=== PATIENT | male | born 1950 | race Caucasian/White ===

== ENCOUNTER 2019-06-10 21:55 | Emergency (ER) | payer MEDICARE, MEDICAID ==
--- NOTE | 2019-06-10 22:01 | EDM.PDOC ---
ED HPI GENERAL MEDICAL PROBLEM - General Chief Complaint: General Stated Complaint: syncopy Time Seen by Provider: 06/10/19 22:00 Source of Information: Reports: Patient, Police - History of Present Illness INITIAL COMMENTS - FREE TEXT/NARRATIVE: Aubrey was found seated outside the doorway, of the local service station. He had driven there to apple picking supervisor chicken and potatoes for him and his further evening meal. He stated no injury, with slightly slow to wake up/respond when law enforcement and ambulance were summoned. His food was in containers, nondisturbed on the concrete next to him. He showed no evidence of injury. He had no evidence or older of alcoholic beverage/intoxication. He was initially assessed and recommended he should seek evaluation at which she denied ambulance but agreed to be transported via law enforcement to the emergency department. Denies any intake of alcohol or drugs but states he took his sleeping medication half hours so prior to going up for the food and feels that caused him to become extremely sleepy at which time he settled himself down. Report came the gentleman was passed out at the gas station. He is completely appropriate denying any distress as he is ambulatory into the department accompanied by law enforcement. Onset: Today Duration: Minutes: Severity: Moderate Improves with: Reports: Other (Time) Worsens with: Reports: None Associated Symptoms: Reports: No Other Symptoms - Related Data Allergies Allergy/AdvReac Type Severity Reaction Status Date / Time No Known Drug Allergies Allergy Other Verified 06/10/19 22:12 Home Meds: Home Meds Acetaminophen 500 mg PO DAILY PRN 01/21/18 [History] Metoprolol Tartrate 12.5 mg PO DAILY 06/10/19 [History] amLODIPine Besylate [Amlodipine Besylate] 5 mg PO DAILY 06/10/19 [History] lisinopriL [Lisinopril] 40 mg PO DAILY 06/10/19 [History] traZODone HCl [Trazodone HCl] 50 mg PO 2100 06/10/19 [History] Past Medical History HEENT History: Reports: Cataract, Impaired Vision Cardiovascular History: Reports: None Respiratory History: Reports: None Gastrointestinal History: Reports: None Genitourinary History: Reports: None Musculoskeletal History: Reports: None Neurological History: Reports: None Psychiatric History: Reports: None Endocrine/Metabolic History: Reports: None Hematologic History: Reports: None Immunologic History: Reports: None Oncologic (Cancer) History: Reports: Basal Cell Carcinoma Dermatologic History: Reports: None - Infectious Disease History Infectious Disease History: Reports: Chicken Pox, Measles, Mumps - Past Surgical History Head Surgeries/Procedures: Reports: None HEENT Surgical History: Reports: Cataract Surgery Cardiovascular Surgical History: Reports: None GI Surgical History: Reports: None Male Surgical History: Reports: None Endocrine Surgical History: Reports: None Neurological Surgical History: Reports: C-Spine Musculoskeletal Surgical History: Reports: None Other Musculoskeletal Surgeries/Procedures:: C-spine fusion Oncologic Surgical History: Reports: None Dermatological Surgical History: Reports: None Social & Family History - Family History Family Medical History: Noncontributory - Caffeine Use Caffeine Use: Reports: Coffee, Soda ED ROS GENERAL - Review of Systems Review Of Systems: Comprehensive ROS is negative, except as noted in HPI. ED EXAM, GENERAL - Physical Exam Exam: See Below General Appearance: Alert, WD/WN, No Apparent Distress Ears: Normal External Exam, Normal Canal, Hearing Grossly Normal, Normal TMs Nose: Normal Inspection, Normal Mucosa, No Blood Throat/Mouth: Normal Inspection, Normal Lips, Normal Teeth, Normal Gums, Normal Oropharynx, Normal Voice, No Airway Compromise Head: Atraumatic, Normocephalic Neck: Normal Inspection, Supple, Non-Tender, Full Range of Motion Respiratory/Chest: No Respiratory Distress, Lungs Clear, Normal Breath Sounds, No Accessory Muscle Use, Chest Non-Tender Cardiovascular: Normal Peripheral Pulses, Regular Rate, Rhythm, No Edema, No Gallop, No JVD, No Murmur, No Rub GI/Abdominal: Normal Bowel Sounds, Soft, Non-Tender, No Organomegaly, No Distention, No Abnormal Bruit, No Mass (Male) Exam: Deferred Rectal (Males) Exam: Deferred Back Exam: Full Range of Motion Extremities: Normal Inspection, Normal Range of Motion, Non-Tender, No Pedal Edema Neurological: Alert, Oriented, CN II-XII Intact, Normal Cognition, Normal Gait, Normal Reflexes, No Motor/Sensory Deficits Psychiatric: Normal Affect, Normal Mood Skin Exam: Warm, Dry, Intact, Normal Color, No Rash Lymphatic: No Adenopathy Course - Vital Signs Last Recorded V/S: Last Vital Signs Temp 36.6 C 06/10/19 21:55 Pulse 73 06/10/19 21:55 Resp 20 06/10/19 21:55 BP 153/86 H 06/10/19 21:55 Pulse Ox 99 06/10/19 21:55 - Re-Assessments/Exams Free Text/Narrative Re-Assessment/Exam: 06/10/19 23:13 As he declined any intervention and was totally appropriate questioning we did not pursue any extensive workup. On record review of what was diagnosed as an encephalopathy last fall with no significant findings in that workup. Hospitalized at [facility] for 6 days. He remains totally appropriate and is under no medical compliancy for evaluation as he is totally appropriate. On enforcement is requesting legal issues, as he had driven to the gas station, of which is 0 is registered on breathalyzer. They also request and obtain urine toxicology and a release of records. Departure - Departure Time of Disposition: 22:33 Disposition: Home, Self-Care 01 Condition: Good Clinical Impression: Syncope Qualifiers: Syncope type: unspecified Qualified Code(s): R55 - Syncope and collapse - Discharge Information *PRESCRIPTION DRUG MONITORING PROGRAM REVIEWED*: Not Applicable *COPY OF PRESCRIPTION DRUG MONITORING REPORT IN PATIENT ARISTIDES: Not Applicable Referrals: Micah Parrish MD [Primary Care Provider] - Forms: ED Department Discharge Additional Instructions: You need to go home and rest. You need to take all of your prescribed medications as directed. You need to follow up with your clinic provider as needed. The clinic visit in the next week would be greatly beneficial to your overall health status. As you are under no obligation for further treatment we will not conduct more testing other than the physical evaluation I performed which was negative for any adverse findings. Please consider seeing your clinic next week for a complete follow-up and workup regarding your status. Call or return if any questions. Sepsis Event Note - Focused Exam Vital Signs: Vital Signs Temp Pulse Resp BP Pulse Ox 06/10/19 21:55 36.6 C 73 20 153/86 H 99 Date Exam was Performed: 06/10/19 Time Exam was Performed: 23:09 - Problem List & Annotations (1) Syncope SNOMED Code(s): 034055026 Code(s): R55 - SYNCOPE AND COLLAPSE Status: Acute Priority: Medium Qualifiers: Syncope type: unspecified Qualified Code(s): R55 - Syncope and collapse - Problem List Review Problem List Initiated/Reviewed/Updated: Yes - Assessment/Plan Plan: You need to go home and rest. You need to take all of your prescribed medications as directed. You need to follow up with your clinic provider as needed. The clinic visit in the next week would be greatly beneficial to your overall health status. As you are under no obligation for further treatment we will not conduct more testing other than the physical evaluation I performed which was negative for any adverse findings. Please consider seeing your clinic next week for a complete follow-up and workup regarding your status. Call or return if any questions.
== END 2019-06-10 22:50 | disposition home or self-care (01) ==
LOC: KA.ED 21:55
DX: R55 Syncope and collapse (principal); Z79.899 Other long term (current) drug therapy
CPT/HCPCS: 99284

== ENCOUNTER 2021-08-30 16:30 | Emergency (ER) | payer MEDICARE, MEDICAID ==
[2021-08-30] MEDS ORDERED: Lidocaine 1% 20 ML MDV ONE (17:06)
[2021-08-30] MEDS ORDERED: Cephalexin 250 MG Cap ONE (17:13)
[2021-08-30] MEDS: Cephalexin 250 MG Cap PO ONE (17:30)
== END 2021-08-30 17:35 | disposition home or self-care (01) ==
LOC: KA.ED 16:30
DX: S61.012A Laceration without foreign body of left thumb without damage to nail, initial encounter (principal); I10 Essential (primary) hypertension; F17.210 Nicotine dependence, cigarettes, uncomplicated; Z79.899 Other long term (current) drug therapy; Z79.4 Long term (current) use of insulin; Z79.84 Long term (current) use of oral hypoglycemic drugs; W31.2XXA Contact with powered woodworking and forming machines, initial encounter
CPT/HCPCS: 73140-FA; 99283; A9270-GY

== ENCOUNTER 2023-04-25 14:50 | Emergency (ER) | payer MEDICAID, MEDICARE, OTHER ==
[2023-04-25 16:02] LABS: BASOPHILS ABSOLUTE AUTO 0.04 10^3/uL (0.00-0.10); BASOPHILS PERCENT AUTO 0.6 % (0.0-1.0); EOSINOPHILS ABSOLUTE AUTO 0.06 10^3/uL (0.10-0.30); EOSINOPHILS PERCENT AUTO 0.9 % (1.0-3.0); HEMATOCRIT 38.2 % (40.0-52.0); HEMOGLOBIN 13.6 g/dL (13.0-17.0); IMMATURE GRAN ABSOLUTE AUTO 0.03 10^3/uL (0.00-0.50); IMMATURE GRAN PERCENT AUTO 0.4 % (0.0-5.0); LYMPHOCYTES ABSOLUTE AUTO 2.09 10^3/uL (1.00-4.00); LYMPHOCYTES PERCENT AUTO 29.9 % (20.0-40.0); MEAN CORPUSCULAR HEMOGLOBIN 30.2 pg (27.0-31.0); MEAN CORPUSCULAR HGB CONC 35.6 g/dL (32.0-36.0); MEAN CORPUSCULAR VOLUME 84.7 fL (82.0-92.0); MEAN PLATELET VOLUME 11.6 fL (7.4-10.4); MONOCYTES ABSOLUTE AUTO 0.42 10^3/uL (0.10-0.80); NEUTROPHILS ABSOLUTE AUTO 4.36 10^3/uL (2.50-7.00); NEUTROPHILS PERCENT AUTO 62.2 % (50.0-70.0); PLATELET COUNT,PLT 225 10^3/uL (150-400); RED BLOOD CELL COUNT 4.51 10^6/uL (4.50-6.00); RED CELL DISTRIBUTION WIDTH 12.2 % (11.5-14.5)
[2023-04-25 16:24] LABS: ALBUMIN 3.74 g/dL (3.40-5.00); BILIRUBIN TOTAL 0.6 mg/dL (0.2-1.0); CALCIUM 8.9 mg/dL (8.7-10.3); CARBON DIOXIDE,CO2 17.9 mmol/L (21.0-32.0); CREATININE 0.86 mg/dL (0.51-1.17); EST CRCL DRUG DOSING (CG) 62.85 mL/min; POTASSIUM,K 4.9 mmol/L (3.5-5.1); PROTEIN TOTAL,TP 6.8 g/dL (6.4-8.2)
[2023-04-25] MEDS: Sodium Chloride 0.9% 1,000 ML IV ONE ×2 (16:32→18:57)
[2023-04-25] MEDS: Insulin Regular, Human 100 Units/ML 10 ML Vial SUBCUT ONE (17:17)
[2023-04-25] MEDS: Insulin Regular in 0.9 % NACL 100 ML IV SCH (17:55)
[2023-04-25 19:16] LABS: ANION GAP 21.3 mmol/L (5-15); CALCIUM 8.9 mg/dL (8.7-10.3); CARBON DIOXIDE,CO2 20.8 mmol/L (21.0-32.0); CREATININE 0.86 mg/dL (0.51-1.17); EST CRCL DRUG DOSING (CG) 62.85 mL/min; POTASSIUM,K 4.1 mmol/L (3.5-5.1)
[2023-04-25] MEDS: Potassium Chloride 20 MEQ Tab.ER PO ONE (20:06)
[2023-04-25] MEDS: Sodium Chloride 0.9% 1,000 ML IV SCH (20:36)
[2023-04-25] MEDS ORDERED: Dextrose 5%-0.9% NaCl 1,000 ML IV SCH (22:30)
[2023-04-25 22:40] LABS: ANION GAP 15.3 mmol/L (5-15); CALCIUM 8.6 mg/dL (8.7-10.3); CARBON DIOXIDE,CO2 24.4 mmol/L (21.0-32.0); CREATININE 0.8 mg/dL (0.51-1.17); EST CRCL DRUG DOSING (CG) 67.57 mL/min; POTASSIUM,K 3.7 mmol/L (3.5-5.1)
== END 2023-04-25 22:34 ==
LOC: SUPCPDRO 14:50 → KA.ED 14:50
DX: R42 Dizziness and giddiness (principal); E11.10 Type 2 diabetes mellitus with ketoacidosis without coma; Z79.4 Long term (current) use of insulin; I10 Essential (primary) hypertension; Z79.84 Long term (current) use of oral hypoglycemic drugs; Z79.899 Other long term (current) drug therapy
CPT/HCPCS: 36415; 80048; 80053; 82947; 83605; 85025; 93005; 93010; 96360; 96361; 99284; 99285-25; A9270-GY; J1815-GY; J7030; Q3014

== ENCOUNTER 2024-02-02 09:15 | Emergency (ER) | payer MEDICAID, MEDICARE, OTHER ==
[2024-02-02] MEDS ORDERED: Sodium Chloride 0.9% 10 ML Syringe FLUSH PRN (09:21)
[2024-02-02 09:34] LABS: BASOPHILS ABSOLUTE AUTO 0.03 10^3/uL (0.00-0.10); BASOPHILS PERCENT AUTO 0.4 % (0.0-1.0); EOSINOPHILS ABSOLUTE AUTO 0.13 10^3/uL (0.10-0.30); EOSINOPHILS PERCENT AUTO 1.6 % (1.0-3.0); HEMATOCRIT 42.6 % (40.0-52.0); HEMOGLOBIN 14.4 g/dL (13.0-17.0); IMMATURE GRAN ABSOLUTE AUTO 0.02 10^3/uL (0.00-0.50); IMMATURE GRAN PERCENT AUTO 0.3 % (0.0-5.0); LYMPHOCYTES PERCENT AUTO 40.4 % (20.0-40.0); MEAN CORPUSCULAR HEMOGLOBIN 28.6 pg (27.0-31.0); MEAN CORPUSCULAR HGB CONC 33.8 g/dL (32.0-36.0); MEAN CORPUSCULAR VOLUME 84.7 fL (82.0-92.0); MONOCYTES ABSOLUTE AUTO 0.46 10^3/uL (0.10-0.80); MONOCYTES PERCENT AUTO 5.8 % (2.0-8.0); NEUTROPHILS ABSOLUTE AUTO 4.08 10^3/uL (2.50-7.00); NEUTROPHILS PERCENT AUTO 51.5 % (50.0-70.0); PLATELET COUNT,PLT 261 10^3/uL (150-400); RED BLOOD CELL COUNT 5.03 10^6/uL (4.50-6.00); RED CELL DISTRIBUTION WIDTH 12.7 % (11.5-14.5); WHITE BLOOD CELL COUNT,WBC 7.92 10^3/uL (5.00-10.00)
[2024-02-02 09:43] LABS: HEMOGLOBIN A1C > 14.0 % (4.3-5.7)
[2024-02-02 09:50] LABS: PH VENOUS,POC 7.29 pH (7.32-7.43)
[2024-02-02] MEDS: Sodium Chloride 0.9% 1,000 ML IV ONE (09:55)
[2024-02-02 09:59] LABS: ANION GAP 12.4 mmol/L (5-15); BLOOD UREA NITROGEN,BUN 25 mg/dL (7-18); CALCIUM 8.2 mg/dL (8.7-10.3); CARBON DIOXIDE,CO2 28.1 mmol/L (21.0-32.0); CHLORIDE,CL 91 mmol/L (98-107); CREATININE 1.38 mg/dL (0.51-1.17); EST CRCL DRUG DOSING (CG) 40.65 mL/min; GLUCOSE RANDOM 495 mg/dL (70-140); POTASSIUM,K 3.5 mmol/L (3.5-5.1); SODIUM,NA 128 mmol/L (136-145)
[2024-02-02 10:10] LABS: ESTIMATED GFR 53 mL/min (>=60)
== END 2024-02-02 11:03 | disposition home or self-care (01) ==
LOC: KA.ED 09:15
DX: E10.65 Type 1 diabetes mellitus with hyperglycemia (principal); Z79.4 Long term (current) use of insulin; I10 Essential (primary) hypertension; Z88.8 Allergy status to other drugs, medicaments and biological substances; Z79.899 Other long term (current) drug therapy
CPT/HCPCS: 36415; 80048; 82803; 82947; 83036; 85025; 96360; 99284; J7030

== ENCOUNTER 2024-09-08 12:16 | Emergency (ER) | payer MEDICARE, MEDICAID ==
[2024-09-08] MEDS: Amoxicillin/Clavulanate K 875-125 MG Tab PO ONE (16:57)
[2024-09-08 17:02] VITALS: BP 120/79; PULSE 76
== END 2024-09-08 17:30 ==
LOC: KA.ED 12:16
DX: L03.032 Cellulitis of left toe (principal); M86.8X7 Other osteomyelitis, ankle and foot; I10 Essential (primary) hypertension; Z88.5 Allergy status to narcotic agent; Z79.899 Other long term (current) drug therapy; Z79.4 Long term (current) use of insulin; Z79.84 Long term (current) use of oral hypoglycemic drugs
CPT/HCPCS: 71045; 73660-TA; 99283; 99285; A9270-GY

== ENCOUNTER 2025-01-02 07:18 | Inpatient (IN) | payer MEDICARE, MEDICAID ==
[2025-01-02 07:54] LABS: BASOPHILS ABSOLUTE AUTO 0.02 10^3/uL (0.00-0.10); BASOPHILS PERCENT AUTO 0.1 % (0.0-1.0); EOSINOPHILS ABSOLUTE AUTO 0.01 10^3/uL (0.10-0.30); EOSINOPHILS PERCENT AUTO 0.1 % (1.0-3.0); IMMATURE GRAN ABSOLUTE AUTO 0.06 10^3/uL (0.00-0.04); IMMATURE GRAN PERCENT AUTO 0.4 % (0.0-0.4); LYMPHOCYTES ABSOLUTE AUTO 0.64 10^3/uL (1.00-4.00); LYMPHOCYTES PERCENT AUTO 4.2 % (20.0-40.0); MEAN PLATELET VOLUME 11.1 fL (7.4-10.4); MONOCYTES ABSOLUTE AUTO 0.92 10^3/uL (0.10-0.80); MONOCYTES PERCENT AUTO 6.1 % (2.0-8.0); NEUTROPHILS ABSOLUTE AUTO 13.45 10^3/uL (2.50-7.00); NEUTROPHILS PERCENT AUTO 89.1 % (50.0-70.0); PLATELET COUNT,PLT 135 10^3/uL (150-400); RED BLOOD CELL COUNT 4.93 10^6/uL (4.50-6.00); RED CELL DISTRIBUTION WIDTH 12.1 % (11.5-14.5); WHITE BLOOD CELL COUNT,WBC 15.10 10^3/uL (5.00-10.00)
[2025-01-02 08:07] LABS: ALANINE AMINOTRANSFERASE,ALT 30.0 U/L (14-63); ASPARTATE AMNIOTRANSFERASE,AST 14.0 U/L (15-37); BILIRUBIN TOTAL 0.7 mg/dL (0.2-1.0); BLOOD UREA NITROGEN,BUN 18.0 mg/dL (7-18); CARBON DIOXIDE,CO2 10.6 mmol/L (21.0-32.0); CHLORIDE,CL 90.0 mmol/L (98-107); CREATININE 1.08 mg/dL (0.51-1.17); EST CRCL DRUG DOSING (CG) 48.53 mL/min; GLUCOSE RANDOM 470.0 mg/dL (70-140); POTASSIUM,K 4.7 mmol/L (3.5-5.1); PROTEIN TOTAL,TP 6.9 g/dL (6.4-8.2); SODIUM,NA 130.0 mmol/L (136-145)
[2025-01-02 08:11] LABS: ESTIMATED GFR 71.0 mL/min (>=60)
[2025-01-02] MEDS ORDERED: Glucose Gel 15 GM in 37.5 GM Tube PO PRN (08:25)
[2025-01-02] MEDS ORDERED: 50% Dextrose in Water 50 ML Syringe IVPUSH PRN (08:25)
[2025-01-02] MEDS: Insulin Regular, Human 100 Units/ML 10 ML Vial SUBCUT ONE (08:45)
[2025-01-02 09:50] LABS: PH ARTERIAL,POC 7.26 pH (7.35-7.45)
[2025-01-02 09:51] LABS: BASE EXCESS ARTERIAL,POC -19 mmol/L ((-2)-3); HCO3 ARTERIAL,POC 5.0 mmol/L (21-28); O2 SATURATION ARTERIAL,POC 98.1 % (94-98); PCO2 ARTERIAL,POC 11 mmHg (35-48); PO2 ARTERIAL,POC 117 mmHg (83-108); TCO2 ARTERIAL,POC < 5 mmol/L (22-29)
[2025-01-02 11:28] LABS: APPEARANCE,URINE CLEAR (CLEAR); GLUCOSE,URINE 500 mg/dL (NEGATIVE); OCCULT BLOOD,URINE SMALL (NEGATIVE)
[2025-01-02 11:32] LABS: EPITHELIAL CELLS,URINE RARE /LPF
[2025-01-02 11:56] LABS: INFLUENZA A NAA NEGATIVE (NEGATIVE); INFLUENZA B NAA NEGATIVE (NEGATIVE); RESPIRATORY SYNCYTIAL VIR NAA NEGATIVE (NEGATIVE)
[2025-01-02 11:58] LABS: CORONAVIRUS COVID-19 NAA NEGATIVE (NEGATIVE)
[2025-01-02] MEDS ORDERED: Ondansetron 4 MG Tab.DIS PO PRN (12:10)
[2025-01-02] MEDS ORDERED: Acetaminophen/HYDROcodone 325-5 MG Tab PO PRN (12:10)
[2025-01-02] MEDS: Iopamidol 755 Mg/ML 100 ML Bottle IV ONE (12:12)
[2025-01-02 12:59] LABS: BLOOD UREA NITROGEN,BUN 25.0 mg/dL (7-18); CARBON DIOXIDE,CO2 13.1 mmol/L (21.0-32.0); CHLORIDE,CL 97.0 mmol/L (98-107); CREATININE 0.88 mg/dL (0.51-1.17); EST CRCL DRUG DOSING (CG) 53.64 mL/min; GLUCOSE RANDOM 386.0 mg/dL (70-140); POTASSIUM,K 4.1 mmol/L (3.5-5.1); SODIUM,NA 131.0 mmol/L (136-145)
[2025-01-02 13:01] LABS: ESTIMATED GFR 89.0 mL/min (>=60)
[2025-01-02 17:13] LABS: BLOOD UREA NITROGEN,BUN 22.0 mg/dL (7-18); CARBON DIOXIDE,CO2 17.1 mmol/L (21.0-32.0); CHLORIDE,CL 101.0 mmol/L (98-107); CREATININE 0.78 mg/dL (0.51-1.17); EST CRCL DRUG DOSING (CG) 60.51 mL/min; ESTIMATED GFR 92.0 mL/min (>=60); GLUCOSE RANDOM 253.0 mg/dL (70-140); POTASSIUM,K 4.6 mmol/L (3.5-5.1); SODIUM,NA 131.0 mmol/L (136-145)
[2025-01-03] MEDS: Insulin Regular, Human 100 Units/ML 10 ML Vial SUBCUT SCH (06:24)
[2025-01-03 08:46] LABS: BLOOD UREA NITROGEN,BUN 17.0 mg/dL (7-18); CARBON DIOXIDE,CO2 15.0 mmol/L (21.0-32.0); CHLORIDE,CL 100.0 mmol/L (98-107); CREATININE 0.85 mg/dL (0.51-1.17); EST CRCL DRUG DOSING (CG) 55.53 mL/min; GLUCOSE RANDOM 370.0 mg/dL (70-140); POTASSIUM,K 3.9 mmol/L (3.5-5.1); SODIUM,NA 132.0 mmol/L (136-145)
[2025-01-03 08:49] LABS: ESTIMATED GFR 90.0 mL/min (>=60)
[2025-01-03] MEDS ORDERED: Glucose Gel 15 GM in 37.5 GM Tube PO PRN (17:04)
[2025-01-03] MEDS ORDERED: 50% Dextrose in Water 50 ML Syringe IVPUSH PRN (17:04)
[2025-01-03] MEDS: Insulin Glargine,Human Rec. Analog 100 Units/ML 3 ML Pen SUBCUT SCH (17:42)
== END 2025-01-04 14:15 | disposition home or self-care (01) | DRG 638 ==
LOC: KA.ED 07:18 → UNDOADMIN 11:13 → KA.MS 11:13
PROVIDERS: ADMIT Family Medicine; ATTEND Family Medicine
DX: E11.10 Type 2 diabetes mellitus with ketoacidosis without coma (principal); E87.1 Hypo-osmolality and hyponatremia; F17.210 Nicotine dependence, cigarettes, uncomplicated; I10 Essential (primary) hypertension; E11.621 Type 2 diabetes mellitus with foot ulcer; F17.200 Nicotine dependence, unspecified, uncomplicated; Z88.5 Allergy status to narcotic agent; H54.7 Unspecified visual loss; L97.521 Non-pressure chronic ulcer of other part of left foot limited to breakdown of skin; Z88.8 Allergy status to other drugs, medicaments and biological substances; Z79.899 Other long term (current) drug therapy; Z79.4 Long term (current) use of insulin; Z79.84 Long term (current) use of oral hypoglycemic drugs; Z98.49 Cataract extraction status, unspecified eye; Z98.890 Other specified postprocedural states
CPT/HCPCS: 36415; 36600; 71045; 73620-LT; 80048; 80053; 81001; 82803; 82947; 84484; 85025; 85379; 87040; 87637; 93010; 94640; 99284; A9270-GY; J1815-GY; J7030; Q3014; S5010